=== PATIENT | female | born 1955 | race Caucasian/White ===

== ENCOUNTER 2020-10-07 22:37 | Emergency (ER) | payer MEDICARE ==
[~2020-10-07] VITALS: Ht 160 cm; Wt 100.0 kg
[~2020-10-07 22:37] MED LIST: ACET500T68 PO; ALBU2.5V8 IH; ATEN50TA PO; BENZ-8 PO; CHOL10003 PO; CIPR250T PO; DILT360C PO; HYDR-2145 PO; HYDR-2761 PO; HYDR200T5 PO; LISI20TA18 PO; SERT25TA PO
--- NOTE | 2020-10-08 01:13 | RAD ---
XR LT WRIST 3VIEWS DATE: 10/08/2020 12:47 AM INDICATION: fall, pain COMPARISON: None. FINDINGS: Bones: There is no evidence of acute fracture or dislocation. Joints: Advanced degenerative changes at the first CMC joint. Miscellaneous: None. IMPRESSION: No evidence of acute fracture. Electronically signed by: Johnny Mckoy MD (10/08/2020 1:10 AM) [facility]
--- NOTE | 2020-10-08 01:14 | RAD ---
XR RIBS 2 VIEWS LT DATE: 10/08/2020 12:47 AM INDICATION: Pain, fall / Spl. Instructions: / History: COMPARISON: None available. FINDINGS: Chest: Heart size is within normal limits. No focal consolidations are seen. No evidence for pulmona ry edema, pleural effusion, or pneumothorax. Bones: No radiographic evidence for a displaced, left-sided rib fracture is seen. IMPRESSION: No radiographic evidence for left-sided rib fracture. Electronically signed by: Johnny Mckoy MD (10/08/2020 1:12 AM) [facility]
[2020-10-08] MEDS ORDERED: HYDROcodone/APAP 5/325MG 1 TAB TABLET PO ONE (01:30)
[2020-10-08] MEDS ORDERED: ACET1TAB33 PO (01:33)
--- NOTE | 2020-10-08 01:34 | ED.ADGEN ---
Past Medical History Past Medical History: COPD, Depression, Hypertension, Other Additional Past Medical Histor: Lupus Past Surgical History: Hysterectomy, Tubal ligation, Other Additional Past Surgical Histo: breast bx Smoking Status: Current Every Day Smoker Alcohol Use: None Drug Use: None General Adult EDM: Chief Complaint: RIB PAIN HPI: HPI: Patient is a 65 year old female coming in for left rib pain left wrist and hand pain. Patient states she tripped over a part of the bed frame and fell and landed on the couch. Denies any loss of consciousness. Patient states she has been having left rib pain is worse with taking a deep breath or coughing. No other complaints. Review of Systems: Review of Systems: All other systems within normal limits except for as noted in the HPI Current Medications: Current Medications Medications (Trade) Dose Ordered Sig/[place] Start Time Stop Time Status Last Admin Dose Admin Acetaminophen/ Hydrocodone Bitart (Lortab 5/325) 1 tab 1X ONCE 10/08/20 01:30 10/08/20 01:31 Allergies: Allergies: Allergies Coded Allergies Type Severity Reaction Last Updated Verified oxycodone Allergy Intermediate hallcuinations 10/07/20 Yes Physical Exam: PE: Constitutional: Well developed, well nourished, no acute distress, non-toxic appearance. [] HENT: Normocephalic, atraumatic, bilateral external ears normal, nose normal. [] Eyes: PERRLA, conjunctiva normal, no discharge. [] Neck: No rigidity, supple, no stridor. [] Cardiovascular: Regular rate and rhythm, brisk cap refill [] Lungs & Thorax: Non labored symmetric respirations, no tachypnea or respiratory distress. Tenderness over left lateral ribs [] Abdomen: Soft, nondistended. Skin: Warm, dry, no erythema, no rash. [] Back: Unremarkable Extremities: No deformities, range of motion grossly intact, no lower extremity edema [] Neurologic: Alert and oriented X 3, no focal deficits noted. [] Psychologic: Affect normal, judgement normal, mood normal. [] Current Patient Data: Vital Signs: Vital Signs Date Time Temp Pulse Resp B/P (MAP) Pulse Ox O2 Delivery O2 Flow Rate FiO2 10/07/20 23:49 98.5 64 18 178/71 (106) 98 Room Air 98.5 EKG: EKG: [] Heart Score: C/O Chest Pain: N/A Risk Factors: Risk Factors: DM, Current or recent (<one month) smoker, HTN, HLP, family history of CAD, obesity. Risk Scores: Score 0 - 3: 2.5% MACE over next 6 weeks - Discharge Home Score 4 - 6: 20.3% MACE over next 6 weeks - Admit for Clinical Observation Score 7 - 10: 72.7% MACE over next 6 weeks - Early Invasive Strategies Radiology/Procedures: Radiology/Procedures: [place] [id number] IMAGING REPORT Signed PATIENT: CARLOS HOLLIS ACCOUNT: [id number] : 1955 LOCATION: ER AGE: 65 SEX: F EXAM STATUS: PRE ER ORD. PHYSICIAN: CHRIST CUEVAS MD REASON: fall PROCEDURE: WRIST 3V LEFT XR LT WRIST 3VIEWS DATE: 10/08/2020 12:47 AM INDICATION: fall, pain COMPARISON: None. FINDINGS: Bones: There is no evidence of acute fracture or dislocation. Joints: Advanced degenerative changes at the first CMC joint. Miscellaneous: None. IMPRESSION: No evidence of acute fracture. Electronically signed by: Amaury Schulz MD (10/08/2020 1:10 AM) [facility] DICTATED and SIGNED BY: AMAURY SCHULZ MD DATE: 10/08/20 [id number] [][place] [id number] IMAGING REPORT Signed PATIENT: CARLOS HOLLIS ACCOUNT: [id number] : 1955 LOCATION: ER AGE: 65 SEX: F EXAM STATUS: PRE ER ORD. PHYSICIAN: CHRIST CUEVAS MD REASON: fall PROCEDURE: RIBS LEFT XR RIBS 2 VIEWS LT DATE: 10/08/2020 12:47 AM INDICATION: Pain, fall / Spl. Instructions: / History: COMPARISON: None available. FINDINGS: Chest: Heart size is within normal limits. No focal consolidations are seen. No evidence for pulmonary edema, pleural effusion, or pneumothorax. Bones: No radiographic evidence for a displaced, left-sided rib fracture is seen. IMPRESSION: No radiographic evidence for left-sided rib fracture. Electronically signed by: Amaury Schulz MD (10/08/2020 1:12 AM) [facility] DICTATED and SIGNED BY: AMAURY SCHULZ MD DATE: 10/08/20 [id number] Course & Med Decision Making: Course & Med Decision Making Pertinent Labs and Imaging studies reviewed. (See chart for details) [] Dragon Disclaimer: Dragon Disclaimer: This electronic medical record was generated, in whole or in part, using a voice recognition dictation system. Departure Departure Impression: Primary Impression: Fall Additional Impression: Contusion of rib on left side Disposition: 01 HOME / SELF CARE / HOMELESS Condition: STABLE Referrals: UNKNOWN PCP NAME (PCP) Patient Instructions: Rib Contusion Scripts Acetaminophen With Codeine (ACETAMINOPHEN-COD #3 TABLET) 1 Each Tablet 1 TAB PO PRN Q6HRS PRN for PAIN for 5 Days, #20 TAB Prov: CHRIST CUEVAS MD 10/08/20 Problem Qualifiers CHRIST CUEVAS MD Oct 08, 2020 01:34
[2020-10-08 01:55] VITALS: BP 151/71
== END 2020-10-08 01:58 | disposition home or self-care (01) ==
LOC: ER 22:37
DX: S20.212A Contusion of left front wall of thorax, initial encounter (principal); M79.642 Pain in left hand; M25.532 Pain in left wrist; J44.9 Chronic obstructive pulmonary disease, unspecified; I10 Essential (primary) hypertension; F17.200 Nicotine dependence, unspecified, uncomplicated; Z88.5 Allergy status to narcotic agent; W01.0XXA Fall on same level from slipping, tripping and stumbling without subsequent striking against object, initial encounter; Y93.89 Activity, other specified; Y92.89 Other specified places as the place of occurrence of the external cause; Y99.8 Other external cause status
CPT/HCPCS: 71100; 73120; 99284